=== PATIENT | male | born 1960 | race Caucasian/White ===

== ENCOUNTER 2016-07-09 07:45 | Emergency (ER) | payer BC ==
[2016-07-09] MEDS ORDERED: HYDROCODONE/APAP 5/325 TAB PO ONE (07:55)
[2016-07-09] MEDS ORDERED: IBUPROFEN 600 MG TAB PO ONE (07:55)
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
[2016-07-09 10:16] VITALS: BP 146/94; PULSE 81; RESP 16; TEMP 98.8; O2SAT 94
== END 2016-07-09 10:15 | disposition home or self-care (01) ==
PROC: 0PSRXZZ Reposition Right Thumb Phalanx, External Approach (ICD-10-PCS; principal; 2016-07-09)
DX: S62.616A Displaced fracture of proximal phalanx of right little finger, initial encounter for closed fracture (principal); V18.2XXA Unspecified pedal cyclist injured in noncollision transport accident in nontraffic accident, initial encounter